=== PATIENT | female | born 1995 | race African-American/Black ===

== ENCOUNTER 2016-11-17 06:28 | Emergency (ER) | payer SELFPAY ==
--- NOTE | ~2016-11-17 | CR151 ---
[facility]. [facility] A Service of [facility] [place] & [facility] / [facility] RADIOLOGY TEXT RESULTS PATIENT: SHEILA ALMAZAN LOCATION: SED : [birth year] UNIT #: [id number] AGE: [address]: Aaron Hoover MD SEX: F ORDER DR: [id number] [place] [id number] E MR#: [id number] Acc #: [id number] NAME: SHEILA ALMAZAN : 1995 SEX: F STUDY DATE/TIME: 11/17/2016 7:49 UNIT: SED ROOM: STUDY DESCRIPTION: CR Hip Min 2 Views Rt Attending Physician: Aaron Hoover M.D. Ordering Physician: Aaron Hoover M.D. Primary Care Physician: Primary Care Physician No MEDICAL IMAGING REPORT This report is preliminary unless electronic signature is present. EXAM Right hip and pelvis HISTORY Right hip pain for 3-4 months. No known injury. FINDINGS AP and oblique examination of the hip shows adequate mineralization of the bones and a normal anatomic relationship of the femoral head with the acetabulum. There are no hypertrophic changes, fractures, dislocation, or joint capsular distension. No radiopaque foreign body is present about the soft tissues of the hip. IMPRESSION Normal hip. Dictated by... Rip Sandoval M.D. THIS IS AN ELECTRONICALLY VERIFIED REPORT Rip Sandoval M.D. at 11/17/2016 4:49 PM Mela TD: 11/17/2016 08:45 JOB #: [id number] MEDICAL IMAGING REPORT Page 1 of 1
--- NOTE | ~2016-11-17 | CR2 ---
[facility]. [facility] A Service of [facility] & [facility] RADIOLOGY TEXT RESULTS PATIENT: SHEILA ALMAZAN LOCATION: SED : [birth year] UNIT #: [id number] AGE: [address]: Aaron Hoover MD SEX: F ORDER DR: [id number] [address] [address] [id number] E MR#: [id number] Acc #: [id number] NAME: SHEILA ALMAZAN : 1995 SEX: F STUDY DATE/TIME: 11/17/2016 7:49 UNIT: SED ROOM: STUDY DESCRIPTION: CR Abdomen Acute Series Attending Physician: Aaron Hoover M.D. Ordering Physician: Aaron Hoover M.D. Primary Care Physician: Primary Care Physician No MEDICAL IMAGING REPORT This report is preliminary unless electronic signature is present. EXAM Acute abdominal series HISTORY Abdominal pain for a year. No known injury. FINDINGS PA upright view of the chest demonstrates no acute cardiopulmonary disease. No free air is noted under the diaphragms. Supine and upright views of the abdomen demonstrates a normal nonobstructive bowel gas pattern. No organomegaly. No abnormal masses or calcifications. Osseous structures appear normal. IMPRESSION Normal acute abdominal series. Dictated by... Rip Sandoval M.D. THIS IS AN ELECTRONICALLY VERIFIED REPORT Rip Sandoval M.D. at 11/17/2016 4:49 PM ANNALISA/anika TD: 11/17/2016 08:46 JOB #: [id number] MEDICAL IMAGING REPORT Page 1 of 1
[~2016-11-17 06:28] MED LIST: MOTRIN600 M2 PO; ZOFRAN ODT4 MG PO
[2016-11-17] MEDS ORDERED: NO MEDICATIONS (06:38)
[2016-11-17 07:39] LABS: URINE SOURCE CLEAN CATCH
[2016-11-17 07:42] LABS: URINE APPEARANCE HAZY; URINE BILIRUBIN NEG (NEG); URINE BLOOD NEG (NEG); URINE COLOR YELLOW; URINE GLUCOSE NEG (NORM); URINE KETONE NEG (NEG); URINE LEUKOCYTE ESTERASE NEG (NEG); URINE NITRATE NEG (NEG); URINE PH 5.5 (5-8); URINE PROTEIN 1+ (NEG); URINE SPECIFIC GRAVITY >=1.030 (1.003-1.035); URINE UROBILINOGEN 0.2 MG/DL (NORM)
[2016-11-17 07:43] LABS: BASOPHIL% 1.2 % (0-2.5); EOSINOPHIL# 0.3 X10e3 (0-0.7); EOSINOPHIL% 7.8 % (0.0-7.0); HEMATOCRIT 41.6 % (35.0-45.0); HEMOGLOBIN 13.4 gm/dL (12.0-16.0); LYMPHOCYTE# 2.1 X10e3 (1.0-3.5); MEAN CELL VOLUME 73.7 FL (83-96); MEAN CORPUSCULAR HEMOGLOBIN 23.8 PG (28-34); MEAN CORPUSCULAR HGB CONC 32.3 g/dL (30-36); MEAN PLATELET VOLUME 9.2 FL (6.5-11.5); MONOCYTE# 0.2 X10e3 (0-1.0); MONOCYTE% 6.1 % (3.0-12.0); NEUTROPHIL% 27.9 % (40-75); PLATELET COUNT 223 X10e3 (140-420); RED BLOOD COUNT 5.65 X10e (3.90-5.30); WHITE BLOOD COUNT 3.7 X10e3 (4.0-10.5)
[2016-11-17 07:44] LABS: DIFF IND YES; MICRO INDICATED? YES
[2016-11-17 07:49] LABS: CULTURE INDICATED? YES; URINE BACTERIA 1+ (NEG); URINE MUCUS PRESENT; URINE RBC 0-2 /[HPF] (0-2); URINE SQUAMOUS EPITHELIAL CELL MODERATE /[HPF]
[2016-11-17 07:52] LABS: ALBUMIN SERUM 4.3 g/dL (3.5-5.0); BILIRUBIN, DIRECT 0.1 mg/dL (0.0-0.2); BILIRUBIN,INDIRECT 0.7 mg/dL (0.0-0.9); BILIRUBIN,TOTAL 0.8 mg/dL (0.2-2.0); BUN/CREATININE RATIO 12.22; CALCIUM SERUM 9.1 mg/dL (8.4-10.2); CREATININE SERUM 0.9 mg/dL (0.6-1.4); GLOM FILT RATE Estimated 104.5 mL/min (>60); POTASSIUM 3.5 mmol/L (3.5-5.1); PROTEIN TOTAL SERUM 7.5 g/dL (6.0-8.3)
[2016-11-17 08:03] LABS: HYPOCHROMIA SL; MICROCYTOSIS SL; PLATELET ESTIMATE NORMAL (NORMAL)
== END 2016-11-17 09:17 | disposition home or self-care (01) ==
LOC: SED 06:28
PROVIDERS: Emergency Medicine
DX: K29.00 Acute gastritis without bleeding (principal); M25.551 Pain in right hip
CPT/HCPCS: 36415; 73502; 74022; 80048; 80076; 81003; 82150; 83690; 84703; 85025; 86677; 87086; 96374; 99284